=== PATIENT | male | born 1990 | race African-American/Black ===

== ENCOUNTER 2023-06-05 03:48 | Emergency (ER) | payer OTHER ==
[~2023-06-05] VITALS: Ht 177.8 cm; Wt 84.0 kg
[2023-06-05 03:51] VITALS: BP 106/90; PULSE 72; RESP 18; TEMP 99
[2023-06-05] MEDS ORDERED: HYDROCODONE/ACETAMINOPHEN 5-325 MG TABLET PO ONE (04:15)
[2023-06-05] MEDS ORDERED: AMOX500C2 PO (04:18)
[2023-06-05] MEDS ORDERED: IBUP-1493 PO (04:18)
[2023-06-05] MEDS: AMOXICILLIN TRIHYDRATE 250 MG CAPSULE PO ONE (04:39)
[2023-06-05] MEDS: IBUPROFEN 800 MG TABLET PO ONE (04:39)
[2023-06-05] MEDS ORDERED: HYDR-4723 PO (19:14)
== END 2023-06-05 04:41 | disposition home or self-care (01) ==
LOC: EMS 03:51
DX: K08.89 Other specified disorders of teeth and supporting structures (principal)
CPT/HCPCS: 99283

== ENCOUNTER 2023-06-05 18:14 | Emergency (ER) | payer OTHER ==
[~2023-06-05] VITALS: Ht 182.9 cm; Wt 68.2 kg
[~2023-06-05 18:14] MED LIST: AMOX500C2 PO; IBUP-1493 PO
[2023-06-05 18:20] VITALS: TEMP 98.6
[2023-06-05 18:45] VITALS: BP 112/71; PULSE 71; RESP 16
[2023-06-05] MEDS ORDERED: HYDR-4723 PO (19:14)
[2023-06-05] MEDS: HYDROCODONE/ACETAMINOPHEN 5-325 MG TABLET PO ONE (19:23)
== END 2023-06-05 19:40 | disposition home or self-care (01) ==
LOC: EMS 18:24
DX: K02.9 Dental caries, unspecified (principal)
CPT/HCPCS: 99283